=== PATIENT | male | born 1990 | race Caucasian/White ===

== ENCOUNTER 2019-04-24 21:44 | Emergency (ER) | payer BC, OTHER ==
[~2019-04-24] VITALS: Ht 182.9 cm; Wt 102.7 kg
[2019-04-24 21:44] VITALS: BP 151/92
== END 2019-04-24 23:00 | disposition home or self-care (01) ==
LOC: M ED 21:44
DX: J39.2 Other diseases of pharynx (principal); F17.290 Nicotine dependence, other tobacco product, uncomplicated

== ENCOUNTER → 2019-05-26 | Outpatient (CLI) | payer OTHER ==
[~2019-05-26] MED LIST: E-Z-GAS II EFFERVESCENT PACKET (SODIUM BICARB./CITRIC ACID/SIMETHICONE) As Ordered ONE; E-Z-HD 98% w/w 340GM SUSP BTL As Ordered ONE; E-Z-PAQUE 96% w/w SUSP 176GM BTL As Ordered ONE
--- NOTE | 2019-05-27 17:02 | REP ---
Examination Requested: Esophagram Barium Swallow Reason For Exam/Comment: Dysphasia Esophagram: The procedure was performed SEAN Sorto, under the direct supervision of Dr. Alexander. The images were reviewed with Dr. Alexander. A single PA chest x-ray is submitted as a pecan mallow dipper film. The superior mediastinal structures are midline. The heart size is within normal limits. The lungs are clear. Liquid barium and gas producing granules were given in the erect position as well as liquid barium in the prone oblique position, in order to perform a double contrast esophagram examination. Oral and pharyngeal stages of the examination were unremarkable. Esophageal transport is efficient and there is no stricture, or mucosal ring noted. 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 There is no hiatal hernia noted. Gastroesophageal reflux was not visualized throughout the course of the exam. Impression: 1. 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 0.6 minutes of fluoroscopy time was utilized for this procedure. Some fluoroscopic images are performed with last image hold technology. These images require no additional radiation. Reviewed by SEAN Delcid 05/26/2019 04:47 P Electronically Signed by Pete Alexander MD 05/27/2019 04:52 P
== END ==
LOC: M RAD 07:45
PROVIDERS: ATTEND Specialist
DX: R13.10 Dysphagia, unspecified (principal); K22.8 Other specified diseases of esophagus

== ENCOUNTER 2020-09-12 12:03 | Emergency (ER) | payer BC, OTHER ==
[~2020-09-12] VITALS: Ht 182.9 cm; Wt 109.8 kg
--- NOTE | 2020-09-12 13:30 | REP ---
INDICATION: left testicular lump. COMPARISON: None. TECHNIQUE: Real-time sonographic evaluation of scrotum and contents performed. FINDINGS: The testicles are normal in size and echotexture, right testicle measuring 4.5 x 2.6 x 3.2 cm and left testicle 4.8 x 2.5 x 3.3 cm. There is no testicular mass or torsion. Blood flow is seen in each testicle with duplex Doppler evaluation. There is no abnormality of either epididymis. There are small bilateral hydroceles. There is a very small left varicocele, with mildly prominent 3 mm venous structures seen adjacent to the lower pole of the left testicle. IMPRESSION: No testicular mass or torsion. Small bilateral hydroceles. Small left varicocele. <Electronically signed by Pete Alexander > 09/12/20 [id number]
[2020-09-12 13:51] LABS: CHLAMYDIA DNA AMPLIFICATION NEGATIVE (NEGATIVE); GC DNA AMPLIFICATION NEGATIVE (NEGATIVE)
[2020-09-12 14:54] VITALS: BP 167/98
--- NOTE | 2020-09-12 17:35 | ED PDOC ---
Post-Departure Follow-Up DR HERRERA FAXED FORMAL REPORT OF SCROTAL US FOR FU Sandrita Ríos MD Sep 12, 2020 17:35
== END 2020-09-12 14:57 | disposition home or self-care (01) ==
LOC: M ED 12:03
DX: N43.3 Hydrocele, unspecified (principal); I86.1 Scrotal varices; I10 Essential (primary) hypertension; F17.290 Nicotine dependence, other tobacco product, uncomplicated; Z91.89 Other specified personal risk factors, not elsewhere classified

== ENCOUNTER 2023-12-02 08:55 | Emergency (ER) | payer BC, OTHER ==
[~2023-12-02] VITALS: Ht 182.9 cm; Wt 104.7 kg
[2023-12-02 10:45] VITALS: BP 155/102; TEMP 98.9; O2SAT 100
== END 2023-12-02 10:49 | disposition home or self-care (01) ==
LOC: M ED 08:55
DX: S63.521A Sprain of radiocarpal joint of right wrist, initial encounter (principal); X50.0XXA Overexertion from strenuous movement or load, initial encounter; Y92.512 Supermarket, store or market as the place of occurrence of the external cause; Y93.89 Activity, other specified; Y99.0 Civilian activity done for income or pay

== ENCOUNTER 2024-08-23 10:20 | Emergency (ER) | payer OTHER ==
[2024-08-23] MEDS: BOOSTRIX VACCINE (TETANUS/DIPHTH/ACEL. PERTUSSIS) 0.5ML SYR IM ONE (11:07)
[2024-08-23] MEDS: LIDOCAINE 1% MDV 20ML VIAL SC ONE (11:40)
[2024-08-23 11:58] VITALS: BP 128/88; TEMP 98.1; O2SAT 98
== END 2024-08-23 12:05 | disposition home or self-care (01) ==
LOC: M ED 10:20
DX: S61.211A Laceration without foreign body of left index finger without damage to nail, initial encounter (principal); X58.XXXA Exposure to other specified factors, initial encounter; Y92.009 Unspecified place in unspecified non-institutional (private) residence as the place of occurrence of the external cause; Y93.9 Activity, unspecified; Y99.9 Unspecified external cause status; Z91.89 Other specified personal risk factors, not elsewhere classified; Z91.018 Allergy to other foods

== ENCOUNTER 2024-08-30 07:07 | Emergency (ER) | payer OTHER ==
[2024-08-30 08:15] VITALS: BP 131/92; TEMP 97.5; O2SAT 99
== END 2024-08-30 08:16 | disposition home or self-care (01) ==
LOC: M ED 07:07
DX: Z48.02 Encounter for removal of sutures (principal)